=== PATIENT | male | born 1955 | race Caucasian/White ===

== ENCOUNTER 2018-05-04 08:42 | Emergency (ER) | payer MEDICAID, OTHER ==
[2018-05-04 08:44] VITALS: BMI 40.3
[2018-05-04] MEDS ORDERED: Albuterol-Ipratrop 3 mg / 0.5 (3 ml) UD IH STA (09:05)
--- NOTE | 2018-05-04 09:10 | ED PDOC ---
HPI: General Adult Time Seen by Provider: 05/04/18 08:50 Chief Complaint (Nursing): Dizziness/Lightheaded Chief Complaint (Provider): Cough, congestion and chest tightness History Per: Patient History/Exam Limitations: no limitations Onset/Duration Of Symptoms: Hrs (today) Additional Complaint(s): Roberto Monroe is a 63 year old male, with a past medical history of diabetes, who presents to the emergency department complaining of cough, congestion and chest tightness ongoing since last night. Patient reports feeling lightheaded while coughing today associated with pain to right arm. He denies any weakness, numbness, LOC, or other medical complaints. PMD: Clinic at [facility]. Past Medical History Reviewed: Historical Data, Nursing Documentation, Vital Signs Vital Signs: Last Vital Signs Temp 97.6 F 05/04/18 08:44 Pulse 87 05/04/18 08:44 Resp 17 05/04/18 08:44 BP 151/78 H 05/04/18 08:44 Pulse Ox 96 05/04/18 08:44 - Medical History PMH: Anxiety, Arthritis (neck), Asthma, Back Problems, COPD, CVA, Diabetes (borderline), HTN, Hypercholesterolemia, Hyperlipidemia, Kidney Stones, Pneumonia, Chronic Kidney Disease, TIA (2002 & 2014), Chronic Pain Denies: Seizures - Surgical History Surgical History: Tonsillectomy (11 y/o) - Family History Family History: States: [place] (Multiple uncles had [place]'s in their 40's and 50's but not 1st degree family), Diabetes, Hypertension - Immunization History Hx Tetanus Toxoid Vaccination: No Hx Influenza Vaccination: No Hx Pneumococcal Vaccination: No - Home Medications Home Medications: Ambulatory Orders Medication Instructions Recorded Aspirin [Ecotrin] 81 mg PO DAILY tabec 04/15/18 Simvastatin 20 mg PO HS #30 tablet 04/15/18 metFORMIN [glucOPHAGE] 500 mg PO BID tab 04/15/18 Azithromycin [Zithromax] 250 mg PO DAILY #6 tab 05/04/18 Benzonatate [Tessalon Perle] 100 mg PO Q8 #12 capsule 05/04/18 - Allergies Allergies/Adverse Reactions: Allergies Allergy/AdvReac Type Severity Reaction Status Date / Time No Known Allergies Allergy Verified 04/14/18 19:45 Review of Systems ROS Statement: Except As Marked, All Systems Reviewed And Found Negative ENT: Positive for: Nose Congestion Cardiovascular: Positive for: Chest Pain (tightness), Light Headedness Respiratory: Positive for: Cough Musculoskeletal: Positive for: Arm Pain (right) Neurological: Negative for: Weakness, Numbness Physical Exam - Reviewed Nursing Documentation Reviewed: Yes Vital Signs Reviewed: Yes - Physical Exam Appears: Positive for: No Acute Distress Head Exam: Positive for: ATRAUMATIC, NORMAL INSPECTION, NORMOCEPHALIC Skin: Positive for: Normal Color, Warm, Dry Eye Exam: Positive for: Normal appearance, EOMI, PERRL Neck: Positive for: Normal, Painless ROM, Supple Cardiovascular/Chest: Positive for: Regular Rate, Rhythm. Negative for: Murmur Respiratory: Positive for: Rhonchi (scattered). Negative for: Wheezing, Respiratory Distress Gastrointestinal/Abdominal: Positive for: Normal Exam, Soft. Negative for: Tenderness Back: Positive for: Normal Inspection. Negative for: L CVA Tenderness, R CVA Tenderness, Vertebral Tenderness Extremity: Positive for: Normal ROM (Full ROM of right upper extremity). Negative for: Tenderness (right upper extremity), Deformity (right upper extremity) Neurologic/Psych: Positive for: Alert, Oriented (x3). Negative for: Motor/Sensory Deficits (no focal deficits) - ECG O2 Sat by Pulse Oximetry: 96 (RA) Pulse Ox Interpretation: Normal Medical Decision Making Medical Decision Making: Time: 08:50 Initial Impression: Chest tightness, will obtain EKG, Chest X-Ray and give Nebulizer treatment. r/o ACS Initial Plan: --EKG --Chest two views (PA/LAT) [RAD] --Duoneb 3 ml INH --Reevaluation Scribe Attestation: Documented by Valentín Barber, acting as a scribe for Praveen Hoover MD Provider Scribe Attestation: All medical record entries made by the Scribe were at my direction and personally dictated by me. I have reviewed the chart and agree that the record accurately reflects my personal performance of the history, physical exam, medical decision making, and the department course for this patient. I have also personally directed, reviewed, and agree with the discharge instructions and di sposition. Disposition - Clinical Impression Clinical Impression: Pneumonia - Patient ED Disposition Is Patient to be Admitted: No Counseled Patient/Family Regarding: Studies Performed, Diagnosis, Need For Followup, Rx Given - Disposition [facility] Disposition: Routine/Home Disposition Time: 12:35 Condition: FAIR Prescriptions: Azithromycin [Zithromax] 250 mg PO DAILY #6 tab Benzonatate [Tessalon Perle] 100 mg PO Q8 #12 capsule Instructions: Pneumonia in Adults Forms: [facility] ([place])
[2018-05-04] MEDS ORDERED: Albuterol-Ipratrop 3 mg / 0.5 (3 ml) UD ONE (09:27)
--- NOTE | 2018-05-04 09:32 | RAD ---
Date of service: 05/04/2018 HISTORY: cough COMPARISON: Chest radiographs 05/28/2015. TECHNIQUE: Chest PA and lateral FINDINGS: LUNGS: Limited patchy atelectasis or infiltrate seen the right base, borderline at the left. Remaining lung ware clear. PLEURA: No significant pleural effusion identified. No pneumothorax apparent. CARDIOVASCULAR: No aortic atherosclerotic calcification present. Normal cardiac size. No pulmonary vascular congestion. OSSEOUS STRUCTURES: No significant abnormalities. VISUALIZED UPPER ABDOMEN: Normal. OTHER FINDINGS: None. IMPRESSION: Limited right basilar infiltrate with borderline left basilar patchy density developing. Exam otherwise unremarkable.
[2018-05-04] MEDS ORDERED: Azithromycin 500 MG in Sodium Chloride 0.9% 250 ML IVPB STA (10:21)
[2018-05-04] MEDS ORDERED: Azithromycin 500 MG IV IVPB ONE (10:36)
[2018-05-04 12:34] LABS: BASO # 0.1 K/uL (0.0-0.2); BASO % 0.8 % (0.0-2.0); EOS # 0.1 K/uL (0.0-0.7); EOS % 1.9 % (0.0-4.0); HEMOGLOBIN 13.9 g/dL (12.0-18.0); LYMPH % 28.7 % (20.0-40.0); MEAN CELL VOLUME 85.6 fl (80.0-94.0); MEAN CORPUSCULAR HEMOGLOBIN 28.8 pg (27.0-31.0); MEAN CORPUSCULAR HGB CONC 33.6 g/dL (33.0-37.0); MEAN PLATELET VOLUME 7.3 fl (7.2-11.7); MONO # 0.6 K/uL (0.0-0.8); MONO % 8.7 % (0.0-10.0); NEUT # 4.1 K/uL (1.8-7.0); NEUT % 59.9 % (50.0-75.0); RBC 4.83 Mil/uL (4.40-5.90); RED CELL DISTRIBUTION WIDTH 14.1 % (11.5-14.5); WHITE BLOOD COUNT 6.8 K/uL (4.8-10.8)
[2018-05-04 12:48] LABS: ALB/GLOB RATIO 1.3 (1.0-2.1); ALT/SGPT 39 U/L (21-72); AST/SGOT 36 U/L (17-59); BLOOD UREA NITROGEN 23 mg/dl (9-20); CALCIUM 9.4 mg/dL (8.4-10.2); GFR NON-AFRICAN AMERICAN > 60
[2018-05-04 13:38] VITALS: RESP 16
[2018-05-04 13:39] VITALS: BP 146/76; PULSE 84; TEMP 98.4; O2SAT 97
--- NOTE | 2018-05-04 17:02 | CARD ---
APPROVED REPORT Date of service: 05/04/2018 EKG Measurement Heart [id number] <Conclusion> Normal sinus rhythm Minimal voltage criteria for LVH, may be normal variant Borderline ECG
== END 2018-05-04 13:30 | disposition home or self-care (01) ==
LOC: H.ER 08:42
DX: J18.9 Pneumonia, unspecified organism (principal); E78.00 Pure hypercholesterolemia, unspecified; I12.9 Hypertensive chronic kidney disease with stage 1 through stage 4 chronic kidney disease, or unspecified chronic kidney disease; F41.9 Anxiety disorder, unspecified; G89.29 Other chronic pain; Z79.84 Long term (current) use of oral hypoglycemic drugs; Z86.73 Personal history of transient ischemic attack (TIA), and cerebral infarction without residual deficits
CPT/HCPCS: 71046; 80053; 85025; 87040; 93005; 96365; 99284; J0456